=== PATIENT | female | born 1985 | race Caucasian/White ===

== ENCOUNTER 2018-02-06 16:25 | Inpatient (IN) | payer MEDICAID ==
[2018-02-06] MEDS ORDERED: MISOPROSTOL 200 MCG TAB PR (18:30)
[2018-02-06] MEDS ORDERED: METHYLERGONOVINE 0.2 MG INJ IM (18:30)
[2018-02-06] MEDS ORDERED: CARBOPROST 250 MCG INJ IM (18:30)
[2018-02-06] MEDS ORDERED: OXYTOCIN 30 UNITS/LR 500 ML IV (18:30)
[2018-02-06] MEDS ORDERED: IBUPROFEN 600 MG TAB PO (18:30)
[2018-02-06] MEDS ORDERED: LIDOCAINE 1% (MPF) 30 ML INJ INJ (18:30)
[2018-02-06 18:31] LABS: ADD MAN DIFF? NO
[2018-02-06 18:35] LABS: BASOPHILS % 0.1 % (0.0-2.0); EOSINOPHILS # 0.1 10^3/ul (0.0-0.5); EOSINOPHILS % 0.6 % (0.0-7.0); HEMATOCRIT 33.9 % (37.0-47.0); HEMOGLOBIN 11.4 g/dl (12.0-16.0); LYMPHOCYTES # 1.9 10^3/ul (0.8-2.9); LYMPHOCYTES % 23.3 % (15.0-51.0); MEAN CORPUSCULAR HEMOGLOBIN 32.7 pg (29.0-33.0); MEAN CORPUSCULAR HGB CONC 33.6 g/dl (32.0-37.0); MEAN CORPUSCULAR VOLUME 97.1 fl (82.0-101.0); MEAN PLATELET VOLUME 11.4 fl (7.4-10.4); MONOCYTE # 0.5 10^3/ul (0.3-0.9); MONOCYTES % 6.2 % (0.0-11.0); NEUTROPHIL # 5.7 10^3/ul (1.6-7.5); NEUTROPHILS % 69.3 % (39.0-77.0); PLATELET COUNT 164 10^3/UL (140-415); RED BLOOD COUNT 3.49 10^6/ul (4.20-5.40); RED CELL DISTRIBUTION WIDTH 14.5 % (11.5-14.5)
[2018-02-06 18:35] LABS: WHITE BLOOD COUNT 8.3 10^3/ul (4.8-10.8)
[2018-02-06 18:54] LABS: GLUCOSE 82 mg/dl (70-220)
[2018-02-06 18:57] LABS: INR 0.91; PROTIME 12.3 Sec (11.9-14.9)
[2018-02-06 18:58] LABS: PARTIAL THROMBOPLASTIN TIME 28.7 Sec (23.0-35.0)
[2018-02-06] MEDS: AMPICILLIN 2 GM/NS (PMX) 100 ML IV (19:07)
[2018-02-06] MEDS: LACTATED RINGER'S 1,000 ML IV* (19:37)
[2018-02-06] MEDS: MISOPROSTOL 50 MCG CAPSULE PO (19:48)
[2018-02-06] MEDS: DEXTROSE 5%-LR 1,000 ML IV (19:48)
[2018-02-06] MEDS: AMPICILLIN 1 GM/NS (PMX) 50 ML IV (23:02)
[2018-02-07] MEDS: MISOPROSTOL 50 MCG CAPSULE PO ×2 (01:03→04:51)
[2018-02-07] MEDS: LACTATED RINGER'S 1,000 ML IV* ×2 (02:30→08:20)
[2018-02-07] MEDS: AMPICILLIN 1 GM/NS (PMX) 50 ML IV (02:59)
[2018-02-07] MEDS: DEXTROSE 5%-LR 1,000 ML IV ×2 (03:00→13:45)
[2018-02-07] MEDS ORDERED: BUTORPHANOL 2 MG INJ (06:41)
[2018-02-07] MEDS: BUTORPHANOL 2 MG INJ IV (06:58)
[2018-02-07] MEDS ORDERED: LIDOCAINE 0.5% (SDV) 50 ML INJ INJ (07:00)
[2018-02-07] MEDS: LACTATED RINGER'S 1,000 ML IV (07:29)
[2018-02-07] MEDS ORDERED: FENTAnyl 2MCG/ML-ROPIV 0.2% 100 ML (07:53)
[2018-02-07] MEDS ORDERED: NALOXONE (0.4 MG/ML) INJ IV (08:00)
[2018-02-07] MEDS ORDERED: LIDOCAINE 1.5%/EPI MPF (SDV) 30 ML VIAL (08:42)
[2018-02-07] MEDS: FENTAnyl 2MCG/ML-ROPIV 0.2% 100 ML BAG EPI (15:15)
[2018-02-07] MEDS: OXYTOCIN 30 UNITS/LR 500 ML IV ×2 (17:41→17:42)
[2018-02-07] MEDS ORDERED: METHYLERGONOVINE 0.2 MG INJ IM (20:30)
[2018-02-07] MEDS ORDERED: OXYCODONE/ASPIRIN (4.88/325) TAB PO ×2 (20:30)
[2018-02-07] MEDS ORDERED: OXYTOCIN 30 UNITS/LR 500 ML IV (20:30)
[2018-02-07] MEDS ORDERED: ZOLPIDEM 5 MG TAB PO (20:30)
[2018-02-07] MEDS ORDERED: CARBOPROST 250 MCG INJ IM (20:30)
[2018-02-07] MEDS ORDERED: WITCH HAZEL/GLYCERIN PAD PR (20:30)
[2018-02-07] MEDS ORDERED: MISOPROSTOL 200 MCG TAB PR (20:30)
[2018-02-07] MEDS: SENNA/DOCUSATE NA (8.6MG/50MG) TAB PO (20:41)
[2018-02-07] MEDS: LANOLIN 7 GM TUBE TOP (20:42)
[2018-02-07] MEDS: BENZOCAINE 20% 56 ML SPRAY TOP (20:42)
[2018-02-07] MEDS: IBUPROFEN 600 MG TAB PO (23:37)
[2018-02-08] MEDS: IBUPROFEN 600 MG TAB PO ×3 (05:54→18:15)
[2018-02-08 08:34] LABS: ADD MAN DIFF? NO
[2018-02-08 08:38] LABS: WHITE BLOOD COUNT 8.2 10^3/ul (4.8-10.8)
[2018-02-08 08:38] LABS: BASOPHILS % 0.1 % (0.0-2.0); EOSINOPHILS # 0.1 10^3/ul (0.0-0.5); EOSINOPHILS % 0.6 % (0.0-7.0); HEMATOCRIT 32.8 % (37.0-47.0); HEMOGLOBIN 10.8 g/dl (12.0-16.0); LYMPHOCYTES # 1.7 10^3/ul (0.8-2.9); MEAN CORPUSCULAR HEMOGLOBIN 32.5 pg (29.0-33.0); MEAN CORPUSCULAR HGB CONC 32.9 g/dl (32.0-37.0); MEAN CORPUSCULAR VOLUME 98.8 fl (82.0-101.0); MEAN PLATELET VOLUME 11.6 fl (7.4-10.4); MONOCYTE # 0.7 10^3/ul (0.3-0.9); MONOCYTES % 7.9 % (0.0-11.0); NEUTROPHIL # 5.8 10^3/ul (1.6-7.5); NEUTROPHILS % 70.9 % (39.0-77.0); PLATELET COUNT 127 10^3/UL (140-415); RED BLOOD COUNT 3.32 10^6/ul (4.20-5.40); RED CELL DISTRIBUTION WIDTH 14.6 % (11.5-14.5)
[2018-02-08] MEDS: SENNA/DOCUSATE NA (8.6MG/50MG) TAB PO ×2 (09:10→21:00)
[2018-02-08 15:23] LABS: RAPID PLASMA REAGIN NONREACTIVE (NR)
[2018-02-09] MEDS: IBUPROFEN 600 MG TAB PO ×3 (00:01→12:19)
[2018-02-09] MEDS: SENNA/DOCUSATE NA (8.6MG/50MG) TAB PO (09:00)
[2018-02-09] MEDS: DIPHTH/TET/ACEL PERTUSS (ADULT) 0.5 ML VIAL IM* (12:08)
== END 2018-02-09 16:32 | disposition home or self-care (01) | DRG 807 ==
LOC: OBT 16:25 → L-D 16:25 → PP1 02-07 19:07 → OBT 16:26 → L-D 16:27
PROVIDERS: Obstetrics & Gynecology
PROC: 10E0XZZ Delivery of Products of Conception, External Approach (ICD-10-PCS; principal; 2018-02-07)
PROC: 3E033VJ Introduction of Other Hormone into Peripheral Vein, Percutaneous Approach (ICD-10-PCS; 2018-02-07)
DX: O24.429 Gestational diabetes mellitus in childbirth, unspecified control (principal); Z37.0 Single live birth; Z3A.38 38 weeks gestation of pregnancy
CPT/HCPCS: 62319; 82947; 82962; 85025; 85610; 85730; 86592; 86850; 86900; 86901; 90686; 90715